=== PATIENT | male | born 1990 | race Two or more races ===

== ENCOUNTER 2021-03-23 19:56 | Emergency (ER) | payer SELFPAY ==
[~2021-03-23] VITALS: Ht 180.3 cm; Wt 89.9 kg
[2021-03-23 20:09] VITALS: BP 131/81
== END 2021-03-24 04:02 | disposition left against medical advice (07) ==
LOC: ER 19:57
DX: R21 Rash and other nonspecific skin eruption (principal); Z53.21 Procedure and treatment not carried out due to patient leaving prior to being seen by health care provider